=== PATIENT | male | born 1990 | race Caucasian/White ===

== ENCOUNTER 2017-05-14 21:40 | Emergency (ER) | payer OTHER ==
--- NOTE | 2017-05-15 00:37 | ED ORDER SUMMARY ---
..... Patient: BEV SANTACRUZ OrderSheet [facility] VisitID: [id number] [place] [address] 26y, M Registration Date/Time: 05/14/2017 ORDER SHEET Weight: 86.1 kg (stated) Allergies: Sulfa Antibiotics GENERAL ORDERS: MEDICATION ORDERS: LET Topical 1 application (NOW) (23:10 05/14/2017 Genia RRimaNRima verbal order read back to Saida NIEVES) (23:10 Genia Wisdom) Ibuprofen PO 400 mg (NOW) (23:13 05/14/2017 ASchmuck verbal order read back to Saida NIEVES) (23:14 ASchmuck) Lidocaine Injection Buffered 2 % (soln) (NOW, place at bedside) (23:30 05/14/2017 Saida NIEVES) (23:34 ASchmuck) IV FLUIDS: ORDER SHEET NOTES: [Electronically signed by Jeri Tam R.N. (06:14 05/15/2017)] [Electronically signed by Edmundo Hernandez MD (14:43 05/19/2017)] [Electronically locked/signed by Jeri Tam R.N. (06:14 05/15/2017)]
--- NOTE | 2017-05-15 00:37 | ED CLINICAL REPORT ---
Clinical Report - Physicians/Mid Levels [facility] [address] [place] [address] 05/14/2017 21:42 Patient: BEV SANTACRUZ Time Seen: 22:45. Arrived- By private vehicle. Historian- patient. HISTORY OF PRESENT ILLNESS Chief Complaint: INJURY TO HEAD. Location of injuries- head. The injury occurred just prior to arrival. ( he was jumping on a trampoline and accidentally struck his forehead against a wall). ([place] The patient complains of mild pain and moderate pain. The patient sustained a blow to the head. No neck pain or loss of consciousness. Not dazed. REVIEW OF SYSTEMS The patient sustained a single medium sized skin laceration to the face. All systems otherwise negative, except as recorded above. PAST HISTORY Tetanus immunization status is up-to-date. SOCIAL HISTORY Never smoker. Occasional alcohol use. No drug use. FAMILY HISTORY No significant family medical history. ADDITIONAL NOTES The nursing notes have been reviewed. PHYSICAL EXAM Vital Signs: 05/14/2017 21:55 BP: 141/87. HR: 108. RR: 16. O2 saturation: 100%. Temp: 99.2 F. Have been reviewed. Appearance: Alert. No acute distress. Head: Forehead: subcutaneous 2.0 cm laceration of the right side of the forehead. SEE LACERATION PROCEDURE NOTE #1. Eyes: Pupils equal, round and reactive to light. EOM intact. ENT: No dental injury. Pharynx normal. Neck: Painless ROM. Non-tender. No vertebral tenderness. CVS: Heart sounds normal. Respiratory: Breath sounds normal. Abdomen: Soft and nontender. No organomegaly. Back: ROM normal. Skin: Skin warm and dry. Normal skin color. Normal skin turgor. Extremities: Normal inspection. Extremities atraumatic. No lower extremity edema. Neuro: Speech normal. No motor deficit. No sensory deficit. PROGRESS AND PROCEDURES Laceration Repair: Location: forehead. Time-out completed immediately before the procedure. Length: 2 cm. Complexity: simple (local anesthesia used and sutured). Wound depth/shape- subcutaneous, stellate and irregular. Distal neuro/vascular/tendon status normal. Local anesthesia provided using LET and 2% lidocaine no epi. Prepped with Betadine. Wound explored, cleansed and examined to the base in bloodless field. Closure of skin: interrupted 5-0 (9 sutures). Post-procedure: he is stable and there are no complications. Bleeding is controlled. Dressing applied. Tetanus immunization up-to-date. Course of Care: Patient is stable. Patient/family counseled. Old medical records ordered. Old records unavailable. Disposition: Discharged. Condition: stable. CLINICAL IMPRESSION Single superficial laceration to the forehead. INSTRUCTIONS Protect wound and keep wound area clean. Change dressing twice daily. You may wash wounds briefly, then dry. Apply neosporin twice daily. Sutures/emperatriz should be removed in seven days. Warnings: INFECTION: Watch for signs of infection (increasing heat and redness, pus-like drainage, swelling, or increased pain). Return or see your doctor if these signs occur. COMPLICATIONS: Complications from this condition include: possible infection. Future problems may include infection, scarring and pain. INFECTION: Watch for signs of infection (increasing heat and redness, pus-like drainage, swelling, or increased pain). Return or see your doctor if these signs occur. GENERAL WARNINGS: Return or contact your physician immediately if your condition worsens or changes unexpectedly, if not improving as expected, or if other problems arise. Follow-up: Follow up with your doctor in seven days for suture removal. Understanding of the discharge instructions verbalized by patient. (Electronically signed by Edmundo Hernandez MD 05/19/2017 14:43)
--- NOTE | 2017-05-15 00:37 | ED ORDER SUMMARY ---
..... Patient: BEV SANTACRUZ OrderSheet [facility] VisitID: [id number] [place] [address] 26y, M Registration Date/Time: 05/14/2017 ORDER SHEET Weight: 86.1 kg (stated) Allergies: Sulfa Antibiotics GENERAL ORDERS: MEDICATION ORDERS: LET Topical 1 application (NOW) (23:10 05/14/2017 Genia RRimaNRima verbal order read back to Saida NIEVES) (23:10 Genia Wisdom) Ibuprofen PO 400 mg (NOW) (23:13 05/14/2017 ASchmuck verbal order read back to Saida NIVEES) (23:14 ASchmuck) Lidocaine Injection Buffered 2 % (soln) (NOW, place at bedside) (23:30 05/14/2017 Saida NIEVES) (23:34 ASchmuck) IV FLUIDS: ORDER SHEET NOTES: [Electronically signed by Jeri Tam R.N. (06:14 05/15/2017)] [Electronically signed by Edmundo Hernandez MD (14:43 05/19/2017)] [Electronically locked/signed by Jeri Tam R.N. (06:14 05/15/2017)]
--- NOTE | 2017-05-15 00:37 | ED NURSING NOTES ---
Clinical Report - Nurses [facility] [address] [place] [address] 05/14/2017 21:42 Patient: BEV SANTACRUZ TRIAGE Triage time 21:51 May 14 2017. Acuity: LEVEL 4. Chief Complaint: INJURY TO FOREHEAD. 21:55 05/14/17. Alert. No acute distress. SEPSIS SCREEN: Sepsis Screen. Negative (no infection suspected/documented). LILLIAN COMA SCORE: Lillian Coma Scale: 15- eyes open spontaneously (4); best verbal response- oriented x 4 (5); best motor response- obeys commands (6). --21:55 Jacquelin Avalos 21:55 05/14/17. BP: 141/87. HR: 108. RR: 16. O2 saturation: 100%. Temp: 99.2 F. Pain level now 5/10. --21:55 Jacquelin Avalos. Weight: 86.1 kg stated. Height/Length: 71 inches Per Patient. BMI: 26.5. --21:54 Jacquelin Avalos. Medications None. --21:53 Jacquelin Avalos. Medication/allergy information source: the patient. --21:55 Jacquelin Avalos. Allergies Sulfa Antibiotics. --21:53 Jacquelin Avalos. History Arrived by private vehicle. Historian: patient. Accompanied by (Miguelito). No primary care physician. This occurred just prior to arrival. Occurred at a park. He sustained a laceration. ( Pt states he jumped up and hit his head on the wall. No LOC, no back pain, no neck pain.). He has had a headache. No loss of consciousness. No neck pain. 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 PAST MEDICAL HX: Tetanus status: up-to-date. SOCIAL HX: Never smoker. Occasional alcohol use. No drug use. FALL RISK ASSESSMENT: Fall risk assessment completed. No fall risk identified. NUTRITIONAL RISK ASSESSMENT: The nutritional risk assessment revealed no deficiencies. FUNCTIONAL ASSESSMENT: Functional assessment: no impairments noted. LEARNING NEEDS ASSESSMENT: The learning needs assessment revealed no barriers. SKIN INTEGRITY ASSESSMENT: Skin integrity risk assessment completed. No skin integrity risk identified. --21:55 Jacquelin Avalos. ADDITIONAL SURGERIES: [place] teeth. --21:53 Jacquelin Avalos. Assessment The patient states feels the same. --21:55 Jacquelin Avalos. Interventions ID band on patient. --21:55 Jacquelin Avalos. PHYSICAL ASSESSMENT 21:56 05/14/17. Ambulatory to room. GENERAL / NEURO / PSYCH: Alert. Oriented X 4. Appears in no acute distress. HEENT: Head: tenderness present. Right frontal area: laceration with controlled bleeding. Pupils equal, round and reactive to light. EOM intact. Voice within normal limits. No nasal injury noted. Mucous membranes are pink. RESPIRATORY: Respirations not labored. CVS: Capillary refill less than 2 seconds. BACK: No neck or back tenderness. ROM normal to the neck and back. SKIN: Skin is warm and dry. --21:56 Jacquelin Avalos. NURSING PROGRESS NOTES 21:56 05/14/17. The plan of care for this patient has been created. Head of bed elevated. Reassurance given. Two patient identifiers checked. Call light placed in reach. Side rails up x 1. Bed placed in lowest position. Brakes of bed on. Patient ready for evaluation- chart flagged and ED physician and PIPELAYING FITTER notified. --21:56 Jacquelin Avalos 23:10 05/14/2017 LET Topical Topical Solution 1 application. Placed on a 2x2 gauze. Allergies verified and confirmed 5 rights. --23:10 Stefani Jenkins R.N. 23:14 05/14/2017 Ibuprofen PO Tablets 400 mg given. Allergies verified and confirmed 5 rights. --23:14 Jacquelin Avalos 23:34 05/14/2017 LIDOCAINE BUFFERED Injection Injectable 2 % given. (given to ERMD). --23:34 Jacquelin Avalos Wound cleansed with sterile saline and Hibiclens. Applied dressing, following the application of antibiotic ointment (bacitracin). --00:43 Mirna Bonilla. DISPOSITION / DISCHARGE 00:53 05/15/17. No learning barriers present. Discharge instructions provided and reviewed with the patient. Reviewed warnings. Reviewed medication(s). Treatments reviewed. Reviewed referrals. Patient verbalized understanding. Written instructions provided in [place]. The patient was discharged home and accompanied by revenue cycle specialist. He left the Emergency Department ambulatory and via private vehicle. --00:53 Jeri Tam R.N. 00:51 05/15/17. BP: 128/75. HR: 79. RR: 15. O2 saturation: 96%. Temp: deferred. Pain level now: 0/10. --00:53 Jeri Tam R.N. Locked/Released at 05/15/2017 6:14 by Jeri Tam R.N.
--- NOTE | 2017-05-15 00:37 | ED NURSING NOTES ---
Clinical Report - Nurses [facility] [address] [place] [address] 05/14/2017 21:42 Patient: BEV SANTACRUZ TRIAGE Triage time 21:51 May 14 2017. Acuity: LEVEL 4. Chief Complaint: INJURY TO FOREHEAD. 21:55 05/14/17. Alert. No acute distress. SEPSIS SCREEN: Sepsis Screen. Negative (no infection suspected/documented). LILLIAN COMA SCORE: Lillian Coma Scale: 15- eyes open spontaneously (4); best verbal response- oriented x 4 (5); best motor response- obeys commands (6). --21:55 Jacquelin Avalos 21:55 05/14/17. BP: 141/87. HR: 108. RR: 16. O2 saturation: 100%. Temp: 99.2 F. Pain level now 5/10. --21:55 Jacquelin Avalos. Weight: 86.1 kg stated. Height/Length: 71 inches Per Patient. BMI: 26.5. --21:54 Jacquelin Avalos. Medications None. --21:53 Jacquelin Avalos. Medication/allergy information source: the patient. --21:55 Jacquelin Avalos. Allergies Sulfa Antibiotics. --21:53 Jacquelin Avalos. History Arrived by private vehicle. Historian: patient. Accompanied by (Miguelito). No primary care physician. This occurred just prior to arrival. Occurred at a park. He sustained a laceration. ( Pt states he jumped up and hit his head on the wall. No LOC, no back pain, no neck pain.). He has had a headache. No loss of consciousness. No neck pain. 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 PAST MEDICAL HX: Tetanus status: up-to-date. SOCIAL HX: Never smoker. Occasional alcohol use. No drug use. FALL RISK ASSESSMENT: Fall risk assessment completed. No fall risk identified. NUTRITIONAL RISK ASSESSMENT: The nutritional risk assessment revealed no deficiencies. FUNCTIONAL ASSESSMENT: Functional assessment: no impairments noted. LEARNING NEEDS ASSESSMENT: The learning needs assessment revealed no barriers. SKIN INTEGRITY ASSESSMENT: Skin integrity risk assessment completed. No skin integrity risk identified. --21:55 Jacquelin Avalos. ADDITIONAL SURGERIES: [place] teeth. --21:53 Jacquelin Avalos. Assessment The patient states feels the same. --21:55 Jacquelin Avalos. Interventions ID band on patient. --21:55 Jacquelin Avalos. PHYSICAL ASSESSMENT 21:56 05/14/17. Ambulatory to room. GENERAL / NEURO / PSYCH: Alert. Oriented X 4. Appears in no acute distress. HEENT: Head: tenderness present. Right frontal area: laceration with controlled bleeding. Pupils equal, round and reactive to light. EOM intact. Voice within normal limits. No nasal injury noted. Mucous membranes are pink. RESPIRATORY: Respirations not labored. CVS: Capillary refill less than 2 seconds. BACK: No neck or back tenderness. ROM normal to the neck and back. SKIN: Skin is warm and dry. --21:56 Jacquelin Avalos. NURSING PROGRESS NOTES 21:56 05/14/17. The plan of care for this patient has been created. Head of bed elevated. Reassurance given. Two patient identifiers checked. Call light placed in reach. Side rails up x 1. Bed placed in lowest position. Brakes of bed on. Patient ready for evaluation- chart flagged and ED physician and SCHOOL TRANSPORTATION DIRECTOR notified. --21:56 Jacquelin Avalos 23:10 05/14/2017 LET Topical Topical Solution 1 application. Placed on a 2x2 gauze. Allergies verified and confirmed 5 rights. --23:10 Stefani Jenkins R.N. 23:14 05/14/2017 Ibuprofen PO Tablets 400 mg given. Allergies verified and confirmed 5 rights. --23:14 Jacquelin Avalos 23:34 05/14/2017 LIDOCAINE BUFFERED Injection Injectable 2 % given. (given to ERMD). --23:34 Jacquelin Avalos Wound cleansed with sterile saline and Hibiclens. Applied dressing, following the application of antibiotic ointment (bacitracin). --00:43 Mirna Bonilla. DISPOSITION / DISCHARGE 00:53 05/15/17. No learning barriers present. Discharge instructions provided and reviewed with the patient. Reviewed warnings. Reviewed medication(s). Treatments reviewed. Reviewed referrals. Patient verbalized understanding. Written instructions provided in [place]. The patient was discharged home and accompanied by motion picture camera lens technician. He left the Emergency Department ambulatory and via private vehicle. --00:53 Jeri Tam R.N. 00:51 05/15/17. BP: 128/75. HR: 79. RR: 15. O2 saturation: 96%. Temp: deferred. Pain level now: 0/10. --00:53 Jeri Tam R.N. Locked/Released at 05/15/2017 6:14 by Jeri Tam R.N.
--- NOTE | 2017-05-19 14:44 | ED MAR SUMMARY ---
..... Medication Administration Record [facility] [address] [place] [address] Patient: BEV SANTACRUZ Visit ID: [id number] 26y, M Weight: 86.1 kg Height/Length: 71 in BMI: 26.5 ALLERGIES: Sulfa Antibiotics Given 23:10 05/14/2017 Stefani Jenkins R.N. Medication Administered: LET [TOPICAL], Dose: 1 application Topical Solution Topical. Medication Ordered: LET Topical 1 application (NOW). Given 23:14 05/14/2017 Jacquelin Avalos, Medication Administered: IBUPROFEN [PO], Dose: 400 mg Tablets PO. Medication Ordered: Ibuprofen PO 400 mg (NOW). Given 23:34 05/14/2017 Jacquelin Avalos, Medication Administered: LIDOCAINE BUFFERED [INJECTION], Dose: 2 % Injectable Injection. Medication Ordered: Lidocaine Injection Buffered 2 % (soln) (NOW, place at bedside).
--- NOTE | 2017-05-19 14:44 | ED MAR SUMMARY ---
..... Medication Administration Record [facility] [address] [place] [address] Patient: BEV SANTACRUZ Visit ID: [id number] 26y, M Weight: 86.1 kg Height/Length: 71 in BMI: 26.5 ALLERGIES: Sulfa Antibiotics Given 23:10 05/14/2017 Stefani Jenkins R.N. Medication Administered: LET [TOPICAL], Dose: 1 application Topical Solution Topical. Medication Ordered: LET Topical 1 application (NOW). Given 23:14 05/14/2017 Jacquelin Avalos, Medication Administered: IBUPROFEN [PO], Dose: 400 mg Tablets PO. Medication Ordered: Ibuprofen PO 400 mg (NOW). Given 23:34 05/14/2017 Jacquelin Avalos, Medication Administered: LIDOCAINE BUFFERED [INJECTION], Dose: 2 % Injectable Injection. Medication Ordered: Lidocaine Injection Buffered 2 % (soln) (NOW, place at bedside).
--- NOTE | 2017-05-19 14:44 | ED MED RECONCILIATION SUMMARY ---
Patient: BEV SANTACRUZ Medication Reconciliation Report [facility] VisitID: [id number] [place] [address] 26y, M Registration Date/Time: 05/14/2017 Weight: 86.1 kg Height/Length: 71 in. BMI: 26.5 ALLERGIES: Sulfa Antibiotics The patient's Home Medications are listed below: NONE. The source(s) of the original Home Medication information: patient The following Medications were given to the patient in the Emergency Department: LET [Topical] Topical 1 application, administered: 05/14/2017 11:10:00 PM Ibuprofen [PO] PO 400 mg, administered: 05/14/2017 11:14:00 PM LIDOCAINE BUFFERED [INJECTION] Injection 2 %, administered: 05/14/2017 11:34:00 PM The following Medications were prescribed to the patient: None.
--- NOTE | 2017-05-19 14:44 | ED MED RECONCILIATION SUMMARY ---
Patient: BEV SANTACRUZ Medication Reconciliation Report [facility] VisitID: [id number] [place] [address] 26y, M Registration Date/Time: 05/14/2017 Weight: 86.1 kg Height/Length: 71 in. BMI: 26.5 ALLERGIES: Sulfa Antibiotics The patient's Home Medications are listed below: NONE. The source(s) of the original Home Medication information: patient The following Medications were given to the patient in the Emergency Department: LET [Topical] Topical 1 application, administered: 05/14/2017 11:10:00 PM Ibuprofen [PO] PO 400 mg, administered: 05/14/2017 11:14:00 PM LIDOCAINE BUFFERED [INJECTION] Injection 2 %, administered: 05/14/2017 11:34:00 PM The following Medications were prescribed to the patient: None.
--- NOTE | 2017-05-19 14:44 | ED DISCHARGE INSTRUCTIONS ---
Patient: BEV SATNACRUZ General Instructions [facility] VisitID: [id number] [place] [address] 26y, M Registration Date/Time: 05/14/2017 Single superficial laceration to the forehead. INSTRUCTIONS Protect wound and keep wound area clean. Change dressing twice daily. You may wash wounds briefly, then dry. Apply neosporin twice daily. Sutures/emperatriz should be removed in seven days. Warnings: INFECTION: Watch for signs of infection (increasing heat and redness, pus-like drainage, swelling, or increased pain). Return or see your doctor if these signs occur. COMPLICATIONS: Complications from this condition include: possible infection. Future problems may include infection, scarring and pain. INFECTION: Watch for signs of infection (increasing heat and redness, pus-like drainage, swelling, or increased pain). Return or see your doctor if these signs occur. GENERAL WARNINGS: Return or contact your physician immediately if your condition worsens or changes unexpectedly, if not improving as expected, or if other problems arise. Follow-up: Follow up with your doctor in seven days for suture removal. Understanding of the discharge instructions verbalized by patient. ADDITIONAL INFORMATION Laceration, Face (Suture Or Tape) Alaceration is a cut through the skin. This will require stitches if it is deep. Minor cuts may be treated with surgical tape. Home care The following guidelines will help you care for your laceration at home: If a bandage was applied and it becomes wet or dirty, replace it. Otherwise, leave it in place for the first 24 hours, then change it once a day or as directed. If sutures were used, clean the wound daily: After removing the bandage, wash the area with soap and water. Use a wet cotton swab to loosen and remove any blood or crust that forms. After cleaning, keep the wound clean and dry. Talk with your doctor before applying any antibiotic ointment to the wound. Reapply a fresh bandage. You may remove the bandage to shower as usual after the first 24 hours, but do not soak the area in water (no swimming) until the sutures are removed. If surgical tape was used, keep the area clean and dry. If it becomes wet, blot it dry with a towel. The doctor may prescribe an antibiotic cream or ointment to prevent infection. Do not stop taking this medication until you have have finished the prescribed course or the doctor tells you to stop. The doctor may also prescribe medications for pain. Follow the doctor's instructions for taking these medications.If you have chronic liver or kidney disease or ever had a stomach ulcer or GI bleeding, talk with your doctor before using these medicines. Follow-up care Follow up with your health care provider. Most facial cuts heal in five days with no problem. However, even with proper treatment, a wound infection sometimes occurs. Therefore, check the wound daily for the warning signs listed below. Stitches should not be left in the face for more thanfivedays; otherwise, permanent stitch villarreal may form. If surgical tape closures were used, you may remove them yourself afterfivedays, if they have not fallen off by then. When to seek medical care Get prompt medical attention if any of these occur: Increasing pain in the wound Redness, swelling, or pus coming from the wound If sutures come apart or fall out before 5 days If the surgical tape closures fall off before 5 days, or the wound edges reopen Fever of 100.4F (38C) or higher, or as directed by your health care provider Bleeding not controlled by direct pressure Bandage Change If the bandage becomes wet or dirty, replace it. Otherwise, leave it in place for the first 24 hours. Then once a day: After removing the bandage, wash the area with soap and water. Use a wet cotton swab to loosen and remove any blood or crust that forms on the wound. After cleaning, apply a thin layer of antibiotic ointment or cream. Reapply the bandage. You may shower as usual after the first 24 hours. If the bandage is on an arm or leg, cover it with a plastic bag rubber banded at both ends before showering. No tub baths or swimming until the bandage is removed and the wound healed (at least 7 days). You have been given the following additional information: Laceration, Face (Suture Or Tape) Dressing Change (Electronically signed by Edmundo Hernandez MD 05/19/2017 14:43)
== END 2017-05-15 00:53 | disposition home or self-care (01) ==
LOC: ED SRH 21:40
DX: S01.81XA Laceration without foreign body of other part of head, initial encounter (principal); W09.8XXA Fall on or from other playground equipment, initial encounter; Y93.44 Activity, trampolining; Y99.8 Other external cause status; Y92.830 Public park as the place of occurrence of the external cause